=== PATIENT | male | born 1980 | race Caucasian/White ===

== ENCOUNTER 2021-11-02 17:35 | Emergency (ER) | payer OTHER ==
[2021-11-02 19:10] LABS: BASOPHIL 0.9 % (0-2); EOSINOPHIL 7.1 % (0-5); HCT 42.6 % (42.0-52.0); HGB 14.8 g/dl (13.2-18.0); LYMPHOCYTE 34.1 % (15-48); MCH 31.3 pg (25.0-31.0); MCHC 34.7 g/dL (32.0-36.0); MCV 90.1 fL (78.0-100.0); MONOCYTE 5.4 % (0-12); MPV 9.5 fL (6.0-9.5); NEUTROPHIL 52.1 % (41-80); NRBC 0; PLT 277 K/uL (150-400); RBC 4.73 M/uL (4.70-6.00); RDW 12.3 % (11.5-14.0); WBC 10.1 K/uL (4.0-10.5)
[2021-11-02 19:31] LABS: BUN/CREAT RATIO (CALC) 17.2 RATIO; CREATININE 0.93 mg/dL (0.67-1.17); FT4 (FREE T4) 0.9 ng/dL (0.76-1.46); POTASSIUM 3.7 mmol/L (3.5-5.1)
[2021-11-02 19:56] LABS: CORONAVIRUS 2019 SARS-COV-2 NEGATIVE (NEGATIVE); INFLUENZA A NAA NEGATIVE (NEGATIVE)
[2021-11-02] MEDS ORDERED: NORVASC5 MG PO (20:22)
== END 2021-11-02 20:29 | disposition home or self-care (01) ==
LOC: FER 17:35
PROVIDERS: Internal Medicine
DX: R07.89 Other chest pain (principal); I10 Essential (primary) hypertension; F17.290 Nicotine dependence, other tobacco product, uncomplicated; Z20.822 Contact with and (suspected) exposure to COVID-19
CPT/HCPCS: 36415; 71045; 80048; 83880; 84439; 84443; 84484; 85025; 93005; U0002